=== PATIENT | female | born 1965 | race Caucasian/White ===

== ENCOUNTER 2018-06-08 20:55 | Emergency (ER) | payer MEDICAID ==
[~2018-06-08] VITALS: Ht 162.6 cm; Wt 78.2 kg
[~2018-06-08 20:55] MED LIST: FLUT16SP2
[2018-06-08 21:02] VITALS: BP 149/89
[2018-06-08] MEDS ORDERED: AMOXICILLIN/CLAV 875-125MG TABLET PO STA (21:40)
[2018-06-08] MEDS ORDERED: IBUPROFEN 800 MG TABLET PO STA (21:40)
[2018-06-08] MEDS ORDERED: HYDROcodone/APAP 5/325 TABLET PO STA (21:40)
[2018-06-08] MEDS ORDERED: IBUPROFEN 200 MG TABLET ONE (21:51)
[2018-06-08] MEDS ORDERED: HYDROcodone/APAP 5/325 TABLET ONE (21:51)
[2018-06-08] MEDS ORDERED: AMOXICILLIN/CLAV 875-125MG TABLET ONE (21:54)
== END 2018-06-08 22:12 | disposition home or self-care (01) ==
LOC: ED 21:55
DX: K02.9 Dental caries, unspecified (principal); F17.210 Nicotine dependence, cigarettes, uncomplicated
CPT/HCPCS: 99284